=== PATIENT | male | born 1965 | race Caucasian/White ===

== ENCOUNTER 2019-10-08 00:46 | Emergency (ER) | payer SELFPAY ==
[2019-10-08] MEDS ORDERED: NA CHLORIDE 0.9% 100 ML IV ONE (01:28)
[2019-10-08] MEDS ORDERED: KETOROLAC 30 MG/ML INJ ONE (01:28)
[2019-10-08 02:00] LABS: Absolute Lymphocytes (CBC) 0.8 K/uL (0.7-4.9); Basophils % 0.8 % (0-1.3); Lymphocytes % 12.8 % (15.3-44.8); RBC Red Blood Cell Count 3.46 M/uL (4.33-5.43)
[2019-10-08] MEDS ORDERED: ONDANSETRON 4 MG/2 ML VIAL ONE (02:07)
[2019-10-08] MEDS ORDERED: MORPHINE 4 MG/ML SYR ONE (02:07)
[2019-10-08 02:16] LABS: ALT/SGPT 24 U/L (12-78); AST/SGOT 15 U/L (15-37); Albumin 2.8 g/dL (3.4-5.0); Alkaline Phosphatase 79 U/L (45-117); BUN Blood Urea Nitrogen 10 mg/dL (7-18); Bicarbonate 24 mmol/L (21-32); Bilirubin Total 0.2 mg/dL (0.2-1.0); Glucose Level 122 mg/dL (74-106); Protein, Total 6.2 g/dL (6.4-8.2); Sodium Level 141 mmol/L (136-145)
[2019-10-08 02:17] LABS: Potassium 2.9 mmol/L (3.5-5.1)
[2019-10-08] MEDS ORDERED: METHYLPREDNISOLONE 125 MG INJ ONE (02:21)
[2019-10-08] MEDS ORDERED: POTASSIUM 25 MEQ EFFERV TAB ONE (03:14)
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
[2019-10-08 08:12] VITALS: TEMP 98.3
[2019-10-08 08:14] VITALS: BP 111/64; O2SAT 98
--- NOTE | 2019-10-08 08:52 | RAD REPORT ---
EXAM DESCRIPTION: US - Scrotum Testicles - 10/08/2019 3:00 am CLINICAL HISTORY: SWELLING Scrotal pain and swelling COMPARISON: No comparisons FINDINGS: The right testicle 4.3 x 3.1 x 2.8 cm. No intratesticular masses or evidence of testicular torsion. The left testicle 3.7 x 2.4 x 2.1 cm. No intratesticular masses or evidence of testicular torsion. Right epididymis appears slightly prominent relative to the left. Large right hydrocele. IMPRESSION: No intratesticular mass or testicular torsion. Large right hydrocele.
== END 2019-10-08 04:06 | disposition home or self-care (01) ==
LOC: ER 00:46
DX: N43.3 Hydrocele, unspecified (principal); E87.6 Hypokalemia; D63.8 Anemia in other chronic diseases classified elsewhere; Z88.6 Allergy status to analgesic agent; Z88.0 Allergy status to penicillin; Z85.038 Personal history of other malignant neoplasm of large intestine; F17.210 Nicotine dependence, cigarettes, uncomplicated
CPT/HCPCS: 36415; 76870; 80053; 85025; 96361; 96374; 96375; 99284; J2405; J2930

== ENCOUNTER → 2023-12-04 | Emergency (ER) | payer OTHER, SELFPAY ==
[~2023-12-04] MED LIST: FENTANYL CITR 100 MCG/2 ML ONE; NA CHLORIDE 0.9% 1,000 ML ONE; ONDANSETRON 4 MG/2 ML VIAL ONE; PANTOPRAZOLE 40 MG INJ ONE
--- NOTE | 2023-12-04 19:56 | RAD REPORT ---
EXAM DESCRIPTION: RAD - Chest Single View - 12/04/2023 7:51 pm CLINICAL HISTORY: abdominal pain Chest pain. COMPARISON: CHEST SINGLE VIEW dated 04/11/2013; CHEST SINGLE VIEW dated 12/09/2012 FINDINGS: Portable technique limits examination quality. The lungs are emphysematous but grossly clear. The heart is normal in size. No displaced fractures. IMPRESSION: No acute intrathoracic process suspected.
[2023-12-04 20:13] LABS: Absolute Basophils 0.1 K/uL (0-0.5); Absolute Lymphocytes (CBC) 1.7 K/uL (0.7-4.9); Basophils % 1.1 % (0-1.3); Eosinophils % 0.3 % (0-4.4); Hematocrit 29.6 % (39.6-49.0); Hemoglobin 10.4 g/dL (13.6-17.9); Lymphocytes % 13.9 % (15.3-44.8); MCV 96.3 fL (80-100); MPV 7.4 fL (7.6-11.3); Platelets 418 thou/uL (152-406); RBC Red Blood Cell Count 3.07 M/uL (4.33-5.43)
[2023-12-04 20:29] LABS: ALT/SGPT 18 U/L (16-61); Albumin 2.7 g/dL (3.4-5.0); Albumin/Globulin Ratio 0.7 (1.1-1.8); Alkaline Phosphatase 81 U/L (45-117); Anion Gap 9.2 mEq/L (5.0-15.0); BUN Blood Urea Nitrogen 51 mg/dL (7-18); Bicarbonate 28 mEq/L (21-32); Bilirubin Total 0.3 mg/dL (0.2-1.0); Globulin 4.1 g/dL (2.3-3.5); Glomerular Filtration Rate 88 ml/min (=/>90); Glucose Level 131 mg/dL (74-106); Lipase 17 U/L (13-75); NT PRO-BNP 57 pg/mL (<125); Protein, Total 6.8 g/dL (6.4-8.2); Sodium Level 136 mEq/L (136-145); Troponin High Sensitivity 18.9 pg/mL (<58.9)
[2023-12-04 20:30] LABS: AST/SGOT 25 U/L (15-37); Bilirubin Direct < 0.1 mg/dL (0-0.2); Bilirubin Indirect, Calculated ND mg/dL (0.2-0.8); Magnesium 2.1 mg/dL (1.6-2.4); Potassium 4.2 mEq/L (3.5-5.1)
--- NOTE | 2023-12-04 21:09 | RAD REPORT ---
EXAM DESCRIPTION: CTAbdomen Pelvis W Contrast - 12/04/2023 8:55 pm CLINICAL HISTORY: Abdominal pain. ABD PAIN COMPARISON: No comparisons TECHNIQUE: Biphasic CT imaging of the abdomen and pelvis was performed with 100 ml non-ionic IV cont rast. All CT scans are performed using dose optimization technique as appropriate and may include automated exposure control or mA/KV adjustment according to patient size. FINDINGS: The lung bases are clear. The liver, spleen, pancreas, adrenal glands and kidneys are within normal limits. No bowel obstruction, free air, free fluid or abscess. Mild sigmoid diverticulosis coli without diver ticulitis. The appendix is normal. No evidence of significant lymphadenopathy. Mild lumbar spondylosis. IMPRESSION: No acute intra-abdominal or pelvic finding. Prominent sigmoid diverticulosis coli without diverticulitis.
[2023-12-04 22:46] LABS: Urine Bacteria None Seen /HPF (<20); Urine Bilirubin NEGATIVE (Negative); Urine Blood Negative (Negative); Urine Clarity Clear (Clear); Urine Color Light-Yellow (Yellow); Urine Glucose NEGATIVE (Negative); Urine Mucus Slight /HPF (None Seen); Urine Protein TRACE (Negative); Urine RBC <5 /HPF (None Seen); Urine Urobilinogen Normal (Normal)
[2023-12-04 22:47] LABS: Specific Gravity > 1.030 (1.005-1.030)
[2023-12-04 22:54] LABS: Protime INR 1.16
--- NOTE | 2023-12-04 23:10 | ER ---
Nurse's Notes [facility] Name: Paul Price Age: 58 yrs Sex: Male : 1965 Arrival Date: 12/04/2023 Time: 18:28 Bed 8 Private MD: Diagnosis: GI Bleed/ Gastrointestinal hemorrhage, unspecified;Anemia, unspecified Presentation: 12/03 18:40 Chief complaint: EMS states: pt c/o n/v/d has black stool last night. Coronavirus iw screen: At this time, the client does not indicate any symptoms associated with coronavirus-19. Ebola Screen: Patient negative for fever greater than or equal to 101.5 degrees Fahrenheit, and additional compatible Ebola Virus Disease symptoms Patient denies exposure to infectious person. Patient denies travel to an Ebola-affected area in the 21 days before illness onset. No symptoms or risks identified at this time. 18:40 Method Of Arrival: EMS: [email or web address] iw 19:00 Acuity: POLO 3 tm6 19:00 Initial Sepsis Screen: Does the patient meet any 2 criteria? HR > 90 bpm. Does the tm6 patient have a suspected source of infection? No. Patient's initial sepsis screen is negative. Risk Assessment: Do you want to hurt yourself or someone else? Patient reports no desire to harm self or others. Onset of symptoms is unknown. Triage Assessment: 18:47 General: Appears in no apparent distress. uncomfortable, Behavior is calm, cooperative, ld1 appropriate for age. Pain: Complains of pain in abdomen Pain does not radiate. Pain currently is 10 out of 10 on a pain scale. Quality of pain is described as sharp, shooting, Pain began 1 day ago. Is continuous. EENT: No signs and/or symptoms were reported regarding the EENT system. Neuro: Level of Consciousness is awake, alert, obeys commands, Oriented to person, place, time, situation. Cardiovascular: Capillary refill < 3 seconds Patient's skin is warm and dry. Respiratory: Airway is patent Respiratory effort is even, unlabored. GI: Abdomen is flat, non-distended, Reports upper abdominal pain, diarrhea, nausea, vomiting. : No signs and/or symptoms were reported regarding the genitourinary system. : No signs and/or symptoms were reported regarding the genitourinary system. Historical: - Allergies: 18:47 Aspirin; ld1 18:47 Benadryl; ld1 18:47 Codeine; ld1 18:47 PENICILLINS; ld1 - PMHx: 18:47 colon cancer; ld1 - Immunization history:: Adult Immunizations up to date. - Social history:: Smoking status: Patient reports the use of cigarette tobacco products, smokes one-half pack cigarettes per day, Patient/guardian denies using alcohol. Screenin:10 [facility] ED Fall Risk Assessment (Adult) History of falling in the last 3 months, tm6 including since admission No falls in past 3 months (0 pts) Confusion or Disorientation No (0 pts) Intoxicated or Sedated No (0 pts) Impaired Gait No (0 pts) Mobility Assist Device Used No (0 pt) Altered Elimination No (0 pt) Score/Fall Risk Level 0 - 2 = Low Risk Oriented to surroundings, Maintained a safe environment. Abuse screen: Denies threats or abuse. Denies injuries from another. Nutritional screening: No deficits noted. Tuberculosis screening: No symptoms or risk factors identified. Assessment: 19:10 General: Appears distressed, Behavior is calm, cooperative. Pain: Complains of pain in tm6 abdomen Pain currently is 10 out of 10 on a pain scale. Neuro: Level of Consciousness is awake, alert, obeys commands, Oriented to person, place, time, situation. Cardiovascular: Capillary refill < 3 seconds Patient's skin is warm and dry. Rhythm is sinus tachycardia. Respiratory: Reports shortness of breath for several months when lying on back Airway is patent Respiratory effort is even, unlabored, Respiratory pattern is regular, symmetrical. GI: Bowel sounds present X 4 quads. Abdomen is tender to palpation X 4 quads. Guarding noted X 4 quads. Reports diarrhea, nausea, vomiting, black stools. : No signs and/or symptoms were reported regarding the genitourinary system. EENT: No signs and/or symptoms were reported regarding the EENT system. Derm: No signs and/or symptoms reported regarding the dermatologic system. Musculoskeletal: No signs and/or symptoms reported regarding the musculoskeletal system. 22:28 Reassessment: Patient and/or family updated on plan of care and expected duration. Pain tm6 level reassessed. Patient is alert, oriented x 3, equal unlabored respirations, skin warm/dry/pink. 23:36 Reassessment: patient leaving against medical advance. RN and PA spoke with patient and tm6 family multiple times about the importance and need of continued medical care, which would include a transfer to another hospital for a GI specialist. Patient stated he would go to another hospital but refuses to ride in an ambulance. RN and PA explained the need for continued medical care during transfer from [facility] to an accepting facility. Patient continued to refuse EMS transport. Patient and family educated on the need to go to a hospital with a GI specialist, such as [facility] or [facility] immediately. Patient left AMA. Vital Signs: 18:47 Pulse 100; Resp 18; Temp 98.2(TE); Pulse Ox 100% on R/A; Weight 74.84 kg; Height 5 ft. ld1 10 in. ; Pain 10/10; 18:50 BP 102 / 70; ld1 21:49 BP 111 / 76; Pulse 99; Resp 20; Pulse Ox 100% on R/A; kd4 22:24 BP 125 / 85; Pulse 104; Resp 19; Pulse Ox 100% on R/A; Pain 2/10; tm6 23:35 BP 101 / 77; Pulse 103; Resp 20; Temp 98.2(TE); Pulse Ox 99% on R/A; Pain 0/10; tm6 18:47 Body Mass Index 23.67 (74.84 kg, 177.8 cm) ld1 18:47 Pain Scale: Adult ld1 22:24 Pain Scale: Adult tm6 23:35 Pain Scale: Adult tm6 ED Course: 18:36 Patient arrived in ED. mr 18:41 Mahesh Moreno PA is PHCP. cp 18:41 Tom Steven MD is Attending Physician. cp 18:47 Arm band placed on right wrist. ld1 19:10 Patient has correct armband on for positive identification. Placed in gown. Bed in low tm6 position. Call light in reach. Side rails up X2. Provided Education on: plan of care. Client placed on continuous cardiac and pulse oximetry monitoring. NIBP monitoring applied. gambling monitor on. Pulse ox on. NIBP on. Door closed. Noise minimized. 19:53 XRAY Chest (1 view) In Process Unspecified. EDMS 19:53 EKG done, by ED staff, reviewed by Tom Steven MD. tm6 20:00 Initial lab(s) drawn, by me, sent to lab. First set of blood cultures drawn. km8 20:03 LFT's Sent. tm6 20:03 Ptt, Activated Sent. km8 20:03 Lipase Sent. km8 20:03 Magnesium Sent. tm6 20:03 NT PRO-BNP Sent. tm6 20:03 PT-INR Sent. tm6 20:03 Troponin HS Sent. tm6 20:15 Inserted saline lock: 22 gauge in right forearm, using aseptic technique. mb9 20:38 Troy King, RN is Primary Nurse. tm6 20:56 CT Abd/Pelvis - IV Contrast Only In Process Unspecified. EDMS 21:49 PT-INR Sent. kd4 21:49 Lab(s) recollected, by me, sent to lab. kd4 22:46 Urinalysis W/Microscopic Sent. tm6 23:40 Triage completed. tm6 23:40 No provider procedures requiring assistance completed. IV discontinued, intact, tm6 bleeding controlled, No redness/swelling at site. Pressure dressing applied. Administered Medications: 20:38 Drug: Ondansetron IVP 4 mg IVP once; over 2 minutes Route: IVP; Site: right forearm; tm6 20:39 Drug: NS 0.9% IV 1000 ml IV at 999 ml/hr Per protocol Route: IV; Rate: 999 ml/hr; Site: tm6 right forearm; 23:41 Follow up: Response: No adverse reaction; IV Status: Completed infusion; IV Intake: tm6 1000ml 20:39 Drug: Pantoprazole IVP 40 mg IVP once Route: IVP; Site: right forearm; tm6 21:14 Drug: fentaNYL (PF) IVP 50 mcg IVP once Route: IVP; Site: right forearm; tm6 23:16 Drug: NS 0.9% IV 1000 ml IV at 1 bolus Per protocol; 1000 mL bolus Route: IV; Rate: 1 km8 bolus; Site: right forearm; 23:41 Follow up: Response: No adverse reaction; IV Intake: 1000ml tm6 23:16 Drug: Pantoprazole IVP 40 mg IVP once Route: IVP; Site: right forearm; km8 Medication: 19:10 VIS not applicable for this client. tm6 Intake: 23:41 IV: 1000ml; Total: 1000ml. tm6 23:41 IV: 1000ml; Total: 2000ml. tm6 Outcome: 23:09 ER care complete, transfer ordered by MD. manzanares 23:40 AMA AMA form signed tm6 23:40 Condition: unchanged 23:40 Instructed on the need for transfer, 23:41 Patient left the ED. tm6 Signatures: Dispatcher [employer] EDNM Cary Rees, Reg Reg mr Leana Otero, RN RN iw Mahesh Moreno PA PA cp Sims, Lauren RN RN ld1 Manuel, Suzy, RN RN mb9 Emma Sen, RN RN km8 Troy King RN RN tm6 Jonny Barfield RN RN kd4
--- NOTE | 2023-12-04 23:10 | EDPHYS ---
Physician Documentation [facility] Name: Paul Price Age: 58 yrs Sex: Male : 1965 Arrival Date: 12/04/2023 Time: 18:28 Bed 8 Private MD: ED Physician Tom Steven HPI: 12/03 19:00 This 58 yrs old Male presents to ER via EMS with complaints of Abdominal Pain. cp 19:00 The patient presents with abdominal pain. cp 19:00 Onset: The symptoms/episode began/occurred last night. Associated signs and symptoms: cp Pertinent positives: nausea, vomiting, and diarrhea, black colored stools, Pertinent negatives: constipation, fever, headache, palpitations, testicular pain. The symptoms are described as constant. 19:00 Severity of pain: in the emergency department the pain is unchanged despite home cp interventions. Historical: - Allergies: 18:47 Aspirin; ld1 18:47 Benadryl; ld1 18:47 Codeine; ld1 18:47 PENICILLINS; ld1 - PMHx: 18:47 colon cancer; ld1 - Immunization history:: Adult Immunizations up to date. - Social history:: Smoking status: Patient reports the use of cigarette tobacco products, smokes one-half pack cigarettes per day, Patient/guardian denies using alcohol. ROS: 19:05 Constitutional: Negative for body aches, chills, fever, poor PO intake, cp 19:05 Eyes: Negative for injury, pain, redness, and discharge, cp 19:05 ENT: Negative for drainage from ear(s), ear pain, sore throat, difficulty swallowing, difficulty handling secretions, 19:05 Cardiovascular: Negative for chest pain, 19:05 Respiratory: Negative for cough, shortness of breath, wheezing, 19:05 Abdomen/GI: Positive for abdominal pain, nausea and vomiting, black/tarry stool, Negative for diarrhea, constipation, hematemesis, 19:05 Neuro: Negative for altered mental status, headache, syncope, near syncope, 19:05 All other systems are negative, Exam: 19:20 Constitutional: The patient appears in no acute distress, alert, awake, cp non-diaphoretic, non-toxic, well developed, well nourished, uncomfortable, 19:20 Head/Face: Normocephalic, atraumatic. cp 19:20 Eyes: Periorbital structures: appear normal, Conjunctiva: normal, no exudate, no injection, Sclera: no appreciated abnormality, Lids and lashes: appear normal, bilaterally, 19:20 ENT: External ear(s): are unremarkable, Nose: is normal, Mouth: Lips: moist, Oral mucosa: moist, Posterior pharynx: Airway: no evidence of obstruction, patent, 19:20 Chest/axilla: Inspection: normal, Palpation: is normal, no crepitus, no tenderness, 19:20 Cardiovascular: Rate: tachycardic, Rhythm: regular, Edema: is not appreciated, JVD: is not appreciated, 19:20 Respiratory: the patient does not display signs of respiratory distress, Respirations: normal, no use of accessory muscles, no retractions, labored breathing, is not present, Breath sounds: are clear throughout, no decreased breath sounds, no stridor, no wheezing, 19:20 Abdomen/GI: Inspection: abdomen appears normal, Bowel sounds: active, all quadrants, Palpation: soft, in all quadrants, severe abdominal tenderness, in the epigastric area, right upper quadrant and left upper quadrant, rebound tenderness, is not appreciated, voluntary guarding, is elicited in the epigastric area, right upper quadrant and left upper quadrant, 19:20 Back: CVA tenderness, is absent, 19:20 Skin: no rash present. 19:20 Neuro: Orientation: to person, place \T\ time. Mentation: is normal, Motor: moves all fours, strength is normal, Sensation: is normal, 19:57 ECG was reviewed by the Attending Physician. cp 22:15 Abdomen/GI: Rectal exam: Stool: black, cp Vital Signs: 18:47 Pulse 100; Resp 18; Temp 98.2(TE); Pulse Ox 100% on R/A; Weight 74.84 kg; Height 5 ft. ld1 10 in. ; Pain 10/10; 18:50 BP 102 / 70; ld1 21:49 BP 111 / 76; Pulse 99; Resp 20; Pulse Ox 100% on R/A; kd4 22:24 BP 125 / 85; Pulse 104; Resp 19; Pulse Ox 100% on R/A; Pain 2/10; tm6 23:35 BP 101 / 77; Pulse 103; Resp 20; Temp 98.2(TE); Pulse Ox 99% on R/A; Pain 0/10; tm6 18:47 Body Mass Index 23.67 (74.84 kg, 177.8 cm) ld1 18:47 Pain Scale: Adult ld1 22:24 Pain Scale: Adult tm6 23:35 Pain Scale: Adult tm6 MDM: 18:51 Patient medically screened. 20:00 Differential diagnosis: AAA, acute coronary syndrome, non-specific abd pain, cp pancreatitis, Peptic Ulcer Disease, Perf. Duodenal Ulcer, Perf. Gastric Ulcer. 23:00 Data reviewed: vital signs, nurses notes, lab test result(s), EKG, radiologic studies, cp CT scan, plain films. 23:00 I considered the following discharge prescriptions or medication management in the emergency department Medications were administered in the Emergency Department. See MAR. Care significantly affected by the following chronic conditions: Cancer. Counseling: I had a detailed discussion with the patient and/or guardian regarding the historical points, exam findings, and any diagnostic results supporting the discharge/admit diagnosis, lab results, radiology results, the need to transfer to another facility, [facility] does not immediately have the required specialist. Response to treatment: the patient's symptoms have mildly improved after treatment. 12/04 00:00 Refusal of service: The patient/guardian displays adequate decision making capability and despite a detailed discussion of alternatives, benefits, risks, and consequences refuses: transfer for GI services. patient understands risk of worsening symptoms, decompensation. 12/03 18:55 Order name: Basic Metabolic Panel; Complete Time: 20:32 12/03 20:32 Interpretation: Normal except: GLUC 131; BUN 51; GFR 88; CA 8.3. 12/03 18:55 Order name: CBC with Diff; Complete Time: 20:32 03 20:32 Interpretation: Normal except: WBC 12.40; RBC 3.07; HGB 10.4; HCT 29.6; PLT 418; MPV cp 7.4; CLEMENTE% 77.4; LYM% 13.9; NEUT A 9.6. 03 18:55 Order name: LFT's; Complete Time: 20:32 12/03 18:55 Order name: Magnesium; Complete Time: 20:32 12/03 18:55 Order name: NT PRO-BNP; Complete Time: 20:32 18:55 Order name: PT-INR; Complete Time: 22:57 cp 03/ 18:55 Order name: Troponin HS; Complete Time: 20:32 cp 03/12 18:55 Order name: Lipase; Complete Time: 20:32 cp 03/12 18:55 Order name: Ptt, Activated; Complete Time: 22:57 cp 03/12 22:31 Order name: Urinalysis W/Microscopic; Complete Time: 22:57 cp 03 22:57 Interpretation: Normal except: Urine SG > 1.030; UPROT TRACE; UESTR 25. cp 03/ 18:55 Order name: XRAY Chest (1 view); Complete Time: 20:32 cp /12 19:48 Order name: CT Abd/Pelvis - IV Contrast Only; Complete Time: 21:38 cp 03/12 21:38 Interpretation: Report reviewed. cp 12/03 18:55 Order name: EKG; Complete Time: 18:55 cp 12/03 18:55 Order name: Cardiac monitoring; Complete Time: 20:03 cp 12/03 18:55 Order name: EKG - Nurse/Tech; Complete Time: 19:53 cp 12/03 18:55 Order name: IV Saline Lock; Complete Time: 20:03 cp / 18:55 Order name: Labs collected and sent; Complete Time: 20:03 cp / 18:55 Order name: O2 Per Protocol; Complete Time: 20:03 cp 12/03 18:55 Order name: O2 Sat Monitoring; Complete Time: 20:03 cp EC12 19:57 Rate is 105 beats/min. Rhythm is regular. VT interval is normal. QRS interval is cp normal. QT interval is normal. Interpreted by me. Reviewed by me. Administered Medications: 20:38 Drug: Ondansetron IVP 4 mg IVP once; over 2 minutes Route: IVP; Site: right forearm; tm6 20:39 Drug: NS 0.9% IV 1000 ml IV at 999 ml/hr Per protocol Route: IV; Rate: 999 ml/hr; Site: tm6 right forearm; 23:41 Follow up: Response: No adverse reaction; IV Status: Completed infusion; IV Intake: tm6 1000ml 20:39 Drug: Pantoprazole IVP 40 mg IVP once Route: IVP; Site: right forearm; tm6 21:14 Drug: fentaNYL (PF) IVP 50 mcg IVP once Route: IVP; Site: right forearm; tm6 23:16 Drug: NS 0.9% IV 1000 ml IV at 1 bolus Per protocol; 1000 mL bolus Route: IV; Rate: 1 km8 bolus; Site: right forearm; 23:41 Follow up: Response: No adverse reaction; IV Intake: 1000ml 6 23:16 Drug: Pantoprazole IVP 40 mg IVP once Route: IVP; Site: right forearm; km8 Disposition: 12/04 10:15 Co-signature as Attending Physician, Tom Steven MD I reviewed the patient's care rt provided by the Advanced Practice Provider and agree with the diagnosis and treatment plan. Disposition Summary: 12/04/23 23:09 Transfer Ordered Notes: Transfer Location: Other Acute Care Facility cp Reason: Higher level of care cp Condition: Stable cp Problem: new cp Symptoms: have improved cp Accepting Physician: Doctor(12/04/23 23:41) tm6 Diagnosis - GI Bleed/ Gastrointestinal hemorrhage, unspecified cp - Anemia, unspecified cp Forms: - Medication Reconciliation Form cp - SBAR form cp Signatures: Dispatcher [employer] EDMS Mahesh Moreno PA PA cp Mariana Senior RN RN ld1 Tom Steven MD MD rt Emma Sen RN RN km8 Troy King RN RN tm6 Corrections: (The following items were deleted from the chart) 12/03 23:41 23:09 Doctor cp tm6 12/04 00:29 12/03 19:00 The patient presents with abdominal pain cp cp
[2023-12-05 00:25] VITALS: BP 101/77; TEMP 98.2; O2SAT 99
== END ==
LOC: ER 18:28
DX: D64.9 Anemia, unspecified (principal); Z85.038 Personal history of other malignant neoplasm of large intestine; F17.210 Nicotine dependence, cigarettes, uncomplicated; Z88.0 Allergy status to penicillin; Z88.5 Allergy status to narcotic agent; Z88.6 Allergy status to analgesic agent
CPT/HCPCS: 85025; 81001; 80048; 36415; 83735; 85610; 80076; 85730; 84484; 83690; 83880; 74177; 71045; Q9967; C9113 ×2; J3010; J2405; J7030 ×2

== ENCOUNTER 2024-12-21 19:22 | Emergency (ER) | payer OTHER ==
[2024-12-21] MEDS ORDERED: ONDANSETRON 4 MG/2 ML VIAL ONE (19:30)
[2024-12-21] MEDS ORDERED: droPERidol 5 MG/2 ML VIAL ONE (19:31)
[2024-12-21] MEDS ORDERED: LORazepam 2 MG/ML VIAL ONE (19:31)
[2024-12-21] MEDS ORDERED: KETOROLAC 30 MG/ML INJ ONE (19:31)
[2024-12-21] MEDS ORDERED: MORPHINE 4 MG/ML SYR ONE (19:32)
[2024-12-21 20:04] LABS: Albumin/Globulin Ratio 0.8 (1.1-1.8); Anion Gap 6.4 mEq/L (5.0-15.0); Bilirubin Total 0.4 mg/dL (0.2-1.0); Globulin 3.7 g/dL (2.3-3.5); Potassium 3.4 mEq/L (3.5-5.1); Protein, Total 6.7 g/dL (6.4-8.2)
[2024-12-21 20:13] LABS: Absolute Eosinophils 0.1 K/uL (0-0.5); Absolute Lymphocytes (CBC) 0.7 K/uL (0.7-4.9); Absolute Monocytes 0.7 K/uL (0.1-1.3); Absolute Neutrophil 6.9 K/uL (1.8-8.0); Basophils % 0.6 % (0-1.3); Eosinophils % 0.9 % (0-4.4); Hematocrit 37.3 % (39.6-49.0); Hemoglobin 12.9 g/dL (13.6-17.9); Lymphocytes % 8.1 % (15.3-44.8); MCH 34.7 pg (27.0-35.0); MCHC 34.6 g/dL (32.0-36.0); MCV 100.1 fL (80-100); MPV 7.6 fL (7.6-11.3); Monocytes % 8.3 % (3.3-12.3); Neutrophils % 82.1 % (41.7-73.7); Nucleated Red Blood Cells % 0.1 % (0-0); Platelets 257 thou/uL (152-406); RBC Red Blood Cell Count 3.72 M/uL (4.33-5.43); Red Cell Distribution Width 13.5 % (12.1-15.2)
--- NOTE | 2024-12-21 20:35 | RAD REPORT ---
EXAMINATION: Head C Spine Mpr Wo Con CLINICAL INDICATION: Male, 59 years old. fall, head and neck injury TECHNIQUE: Axial CT images from the skull base to the vertex without intravenous contrast. Axial CT i mages through the cervical spine were obtained without intravenous contrast. Sagittal and coronal reformatted images were created from the data set. Coronal and sagittal reformatted images were creat ed from the data set. One or more of the following dose reduction techniques were used: Automated exposure control, adjustment of the mA and/or kV according to patient size, and/or iterative reconstr uction. Unless otherwise specified, incidental findings do not require dedicated imaging follow-up. [id number]. COMPARISON: No prior exam. FINDINGS: Head: INTRACRANIAL: No acute intracranial hemorrhage. No hydrocephalus. No mass effect or midline shift. No significant white matter disease. VASCULATURE: No visualized abnormalities in the arteries or dural venous sinuses. SCALP/SKULL: No calvarial fracture identified. No acute soft tissue abnormality. SINUSES: Chronic mucoperiosteal thickening. No significant mastoid fluid. Cervical spine: ALIGNMENT: 4 mm anterolisthesis of C4 on C5 is likely related to underlying degenerative changes. BONE: Vertebral body heights are maintained. No aggressive osseous lesions. DEGENERATIVE: Multilevel cervical spondylosis with evidence of bilateral neural foraminal narrowing. No high grade central spinal stenosis. Neural foraminal narrowing is most pronounced at the C4-5 and C5-6 levels bilaterally. SOFT TISSUE: No significant abnormalities in the soft tissue of the neck. The visualized lung apices are clear. IMPRESSION: No acute intracranial abnormality. No acute fracture or traumatic malalignment of the cervical spine.
--- NOTE | 2024-12-21 20:47 | RAD REPORT ---
EXAM: Chest Abdomen Pelvis W Cont CLINICAL INDICATION: Male, 59 years acute pelvic injury , traumatic fall TECHNIQUE: CT chest, abdomen and pelvis was performed, with IV contrast, as per department protocol. Axial, sagittal and coronal reconstructions were obtained. One or more of the following dose reduction techniques were used: Automated exposure control, adjustment of the mA and/or kV according to the patient size, and/or iterative reconstruction. Unless otherwise specified, incidental findings do not require dedicated imaging follow-up. [id number]. COMPARISON: No prior exam. FINDINGS: ---THORAX--- LOWER NECK AND CHEST WALL: Visualized thyroid gland and soft tissues are normal. LUNGS AND AIRWAYS: Probable atelectasis. Interlobular septal thickening..Motion artifact limits evalu ation for pulmonary nodule detection. PLEURA: No pleural effusion. No pneumothorax. MEDIASTINUM AND LYMPH NODES: No mediastinal mass or fluid collection. Normal size mediastinal, hilar, and axillary lymph nodes. Diffuse esophageal wall thickening. THORACIC AORTA: No thoracic aortic aneurysm. PULMONARY ARTERIES: Caliber is within normal limits. HEART: Normal heart size. No coronary calcifications.No significant pericardial effusion. ---ABDOMEN/PELVIS--- UPPER GI: No significant abnormality. LIVER: Hepatic steatosis, but otherwise unremarkable. GALLBLADDER/BILE DUCTS: No biliary ductal dilatation.? PANCREAS: Atrophy, but otherwise unremarkable. SPLEEN: Unremarkable. ADRENALS: No adrenal masses. KIDNEYS AND URETERS: No hydronephrosis.12 mm low-density lesion upper pole left kidney is not well as sessed due to streak artifact from the patient's arm.No renal calculi.No ureteral calculi. ABDOMINAL AORTA AND OTHER VESSELS: Infrarenal abdominal aortic aneurysm measuring 2.9 cm. For managem ent of fusiform aneurysmal abdominal aortas: Recommend follow-up every 5 years for aortas meeting the criteria for AAA (>1.5 x proximal normal segment; no f/u if < 1.5 x proximal normal segment; no f /u for aortas < 2.6 cm).Note: For AAA enlargement of > 0.5 cm in 6 months or > 1 cm in 1 year, recommend vascular consultation.References: J Am Michael Radiol 2013; 10(10):789-794; J Vasc Surg. 2018; 67:2-77 PERITONEUM: No abnormal free fluid. No free air. LYMPH NODES: No pathologic lymphadenopathy. ABDOMINAL WALL: Unremarkable SMALL BOWEL/COLON: Small bowel has normal course and caliber. No colonic wall thickening or pericolon ic inflammatory changes. Mild diverticulosis without diverticulitis. Moderate formed stool burden. URINARY BLADDER: Underdistended but grossly unremarkable. REPRODUCTIVE ORGANS: Large right hydrocele. ---COMBINED--- MUSCULOSKELETAL: Acute left third, fourth, fifth rib fractures. Other rib fractures may be present bu t limited by motion. Nondisplaced right subcapital femoral neck fracture. Evaluation of the sternum is limited due to motion. No definite fracture. ADDITIONAL FINDINGS: None. IMPRESSION: Nondisplaced right subcapital femoral neck fracture. Several left rib fractures identified which are nondisplaced. There is significant motion artifact which obscures many of the ribs and sternum and makes excluding fractures at these locations difficult. Possible mild pulmonary edema. Infrarenal abdominal aortic aneurysm measuring 2.9 cm. Follow up recommendations provided above. Indeterminate left upper pole renal lesion which may be a cyst but is not well evaluated due to strea k artifact from the patient's arm. Recommend nonemergent renal ultrasound.
--- NOTE | 2024-12-21 21:04 | RAD REPORT ---
EXAMINATION: Femur Right W Con CLINICAL INDICATION: Male, 59 years old.FALL TECHNIQUE: CT above extremity was performed without contrast. Reformats were performed. One or more o f the following dose reduction techniques were used: Automated exposure control, adjustment of the mA and/or kV according to patient size, and/or iterative reconstruction. Unless otherwise specified, incidental findings do not require dedicated imaging follow-up. [id number]. COMPARISON: No prior exam. FINDINGS: Nondisplaced right subcapital femoral neck fracture. No dislocation. No other fractures identified. M ild tricompartmental degenerative changes are present at the knee. Knee effusion present including fluid likely in the medial collateral ligament bursa.. IMPRESSION: Nondisplaced right subcapital femoral neck fracture.
--- NOTE | 2024-12-21 22:01 | EDPHYS ---
Physician Documentation [facility] Name: Paul Price Age: 59 yrs Sex: Male : 1965 Arrival Date: 12/21/2024 Time: 19:22 Bed 2 Private MD: ED Physician Mariano Preston HPI: 12/21 19:24 This 59 yrs old Male presents to ER via Unassigned with complaints of Fall sp4 Injury. 12/22 21:35 59-year-old male presents with complaint of acute fall, patient fell off a ladder sp4 causing injury to the right hip and thigh. Reports moderate to severe hip and thigh pain, patient arrived with EMS.. Historical: - Allergies: 12/21 19:53 Aspirin; dd2 19:53 Benadryl; dd2 19:53 Codeine; dd2 19:53 PENICILLINS; dd2 - PMHx: 19:53 STOMACH ULCER; Hypertensive disorder; dd2 - PSHx: 19:53 None; dd2 - Immunization history:: Adult Immunizations unknown. - Infectious Disease History:: Denies. - Social history:: Smoking status: Patient reports the use of cigarette tobacco products, smokes one pack cigarettes per day. - Family history:: not pertinent. ROS: 12/22 21:35 Constitutional: Negative for fever, chills, and weight loss, positive for right hip and sp4 thigh pain, positive for left-sided chest wall injury All other systems are negative, Exam: 21:35 Constitutional: This is a well developed, well nourished patient who is awake, alert, sp4 moderate distress secondary to pain Head/Face: Normocephalic, atraumatic. Eyes: Pupils equal round and reactive to light, extra-ocular motions intact. Lids and lashes normal. Conjunctiva and sclera are not injected. Cornea within normal limits. Periorbital areas with no swelling, redness, or edema. ENT: Nares patent. No nasal discharge, no septal abnormalities noted. Tympanic membranes are normal and external auditory canals are clear. Oropharynx with no redness, swelling, or masses, exudates, or evidence of obstruction, uvula midline. Mucous membranes moist. Neck: Trachea midline, no thyromegaly or masses palpated, and no cervical lymphadenopathy. Supple, full range of motion without nuchal rigidity, or vertebral point tenderness. Chest/axilla: Normal chest wall appearance and motion. Nontender with no deformity. No lesions are appreciated. Cardiovascular: Regular rate and rhythm with a normal S1 and S2. No gallops, murmurs, or rubs. Normal PMI, no JVD. No pulse deficits. Respiratory: Lungs have equal breath sounds bilaterally, clear to auscultation and percussion. No rales, rhonchi or wheezes noted. No increased work of breathing, no retractions or nasal flaring. Abdomen/GI: Soft, with normal bowel sounds. No distension or tympany. No guarding or rebound. No evidence of tenderness throughout. Back: No spinal tenderness. No costovertebral tenderness. Skin: Warm, dry with normal turgor. Normal color with no rashes, no lesions, and no evidence of cellulitis. MS/ Extremity: Pulses equal, no cyanosis. Neurovascular intact. Full, normal range of motion. Neuro: Awake and alert, GCS 15, oriented to person, place, time, and situation. Cranial nerves II-XII grossly intact. Motor strength 5/5 in all extremities. Sensory grossly intact. Psych: Awake, alert, with orientation to person, place and time. Patient is upset and irritable Vital Signs: 12/21 19:30 BP 124 / 75; Pulse 86; Resp 17; Temp 97.9; Pulse Ox 94% on 2 lpm NC; Weight 88.45 kg; dd2 Pain 10/10; 20:00 BP 115 / 95; Pulse 91; Resp 17; Pulse Ox 91% ; me1 21:00 BP 110 / 73; Pulse 106; Resp 18; Pulse Ox 90% ; me1 22:00 BP 106 / 69; Pulse 105; Resp 15; Pulse Ox 92% ; me1 23:00 BP 100 / 71; Pulse 105; Resp 19; Pulse Ox 94% on Non-rebreather mask; FiO2 15 %; dd2 19:30 Pain Scale: Adult dd2 Bjorn Coma Score: 19:57 Eye Response: spontaneous(4). Motor Response: obeys commands(6). Verbal Response: dd2 oriented(5). Total: 15. 12/22 21:35 Eye Response: spontaneous(4). Motor Response: obeys commands(6). Verbal Response: sp4 oriented(5). Total: 15. MDM: 12/21 19:46 Medical Screening Exam initiated sp4 21:33 ED course: EXAMINATION: Femur Right W Con CLINICAL INDICATION: Male, 59 years old.FALL sp4 TECHNIQUE: CT above extremity was performed without contrast. Reformats were performed. One or more of the following dose reduction techniques were used: Automated exposure control, adjustment of the mA and/or kV according to patient size, and/or iterative reconstruction. Unless otherwise specified, incidental findings do not require dedicated imaging follow-up. [id number]. COMPARISON: No prior exam. FINDINGS: Nondisplaced right subcapital femoral neck fracture. No dislocation. No other fractures identified. Mild tricompartmental degenerative changes are present at the knee. Knee effusion present including fluid likely in the medial collateral ligament bursa.. IMPRESSION: Nondisplaced right subcapital femoral neck fracture. . ED course: CT report MUSCULOSKELETAL: Acute left third, fourth, fifth rib fractures. Other rib fractures may be present but limited by motion. Nondisplaced right subcapital femoral neck fracture. Evaluation of the sternum is limited due to motion. No definite fracture. ADDITIONAL FINDINGS: None. IMPRESSION: Nondisplaced right subcapital femoral neck fracture. Several left rib fractures identified which are nondisplaced. There is significant motion artifact which obscures many of the ribs and sternum and makes excluding fractures at these locations difficult. Possible mild pulmonary edema. Infrarenal abdominal aortic aneurysm measuring 2.9 cm. Follow up recommendations provided above. Indeterminate left upper pole renal lesion which may be a cyst but is not well evaluated due to streak artifact from the patient's arm. Recommend nonemergent renal ultrasound. . 21:35 ED course: EXAMINATION: Head C Spine Mpr Wo Con CLINICAL INDICATION: Male, 59 years sp4 old. fall, head and neck injury TECHNIQUE: Axial CT images from the skull base to the vertex without intravenous contrast. Axial CT images through the cervical spine were obtained without intravenous contrast. Sagittal and coronal reformatted images were created from the data set. Coronal and sagittal reformatted images were created from the data set. One or more of the following dose reduction techniques were used: Automated exposure control, adjustment of the mA and/or kV according to patient size, and/or iterative reconstruction. Unless otherwise specified, incidental findings do not require dedicated imaging follow-up. [id number]. COMPARISON: No prior exam. FINDINGS: Head: INTRACRANIAL: No acute intracranial hemorrhage. No hydrocephalus. No mass effect or midline shift. No significant white matter disease. VASCULATURE: No visualized abnormalities in the arteries or dural venous sinuses. SCALP/SKULL: No calvarial fracture identified. No acute soft tissue abnormality. SINUSES: Chronic mucoperiosteal thickening. No significant mastoid fluid. Cervical spine: ALIGNMENT: 4 mm anterolisthesis of C4 on C5 is likely related to underlying degenerative changes. BONE: Vertebral body heights are maintained. No aggressive osseous lesions. DEGENERATIVE: Multilevel cervical spondylosis with evidence of bilateral neural foraminal narrowing. No high grade central spinal stenosis. Neural foraminal narrowing is most pronounced at the C4-5 and C5-6 levels bilaterally. SOFT TISSUE: No significant abnormalities in the soft tissue of the neck. The visualized lung apices are clear. IMPRESSION: No acute intracranial abnormality. No acute fracture or traumatic malalignment of the cervical spine. . 21:57 ED course: MUSCULOSKELETAL: Acute left third, fourth, fifth rib fractures. Other rib sp4 fractures may be present but limited by motion. Nondisplaced right subcapital femoral neck fracture. Evaluation of the sternum is limited due to motion. No definite fracture. Nondisplaced right subcapital femoral neck fracture. Several left rib fractures identified which are nondisplaced. There is significant motion artifact which obscures many of the ribs and sternum and makes excluding fractures at these locations difficult. Possible mild pulmonary edema. Infrarenal abdominal aortic aneurysm measuring 2.9 cm. Follow up recommendations provided above. ED course: Patient arrives transfer to [facility] for assessment by trauma team.. 12/22 21:35 Differential diagnosis: hip fracture, intertrochanteric fracture, femoral neck sp4 fracture, femoral shaft fracture, bursitis, arthritis, strain. Data reviewed: vital signs, nurses notes, EMS record, old medical records, lab test result(s), radiologic studies, CT scan, plain films. Consideration of Admission/Observation Patient was admitted/placed on observation. Escalation of care including admission/observation considered. Management of patient was discussed with the following: Space Engineer: Discussed with trauma surgeon at [facility]. ED course: Positive for right femoral neck fracture and multiple rib fractures on the left side.. 12/21 19:25 Order name: CBC with Diff; Complete Time: 21:24 sp4 12/21 19:25 Order name: CMP; Complete Time: 21:24 sp4 12/21 19:25 Order name: Lipase; Complete Time: 21:24 sp4 12/21 19:25 Order name: CT Chest, Abdomen, Pelvis - W/Contrast; Complete Time: 21:24 sp4 12/21 19:26 Order name: CT Head C Spine; Complete Time: 21:24 sp4 12/21 20:11 Order name: Femur Right W Con; Complete Time: 21:24 EDMS 12/21 19:25 Order name: IV Saline Lock; Complete Time: 19:42 sp4 12/21 19:25 Order name: Labs collected and sent; Complete Time: 19:42 sp4 Administered Medications: 12/21 19:45 Drug: Ketorolac IVP 30 mg IVP once Route: IVP; Site: right hand; dd2 20:00 Follow up: Response: No adverse reaction dd2 19:45 Drug: Ativan IVP 1 mg IVP once Route: IVP; Site: right hand; dd2 20:00 Follow up: Response: No adverse reaction dd2 19:45 Drug: Droperidol IVP 1.25 mg IVP once Route: IVP; Site: right hand; dd2 20:00 Follow up: Response: No adverse reaction dd2 19:46 Drug: Ondansetron IVP 8 mg IVP once; over 2 minutes Route: IVP; Site: right hand; dd2 20:01 Follow up: Response: No adverse reaction dd2 19:46 Drug: morphine IVP or IV 8 mg IVP once over 4 mins Route: IVP; Infused Over: 4 mins; dd2 Site: right hand; 20:01 Follow up: Response: No adverse reaction dd2 Disposition: 12/22 21:41 Chart complete. sp4 Disposition Summary: 12/21/24 22:01 Transfer Ordered Notes: [facility] Reason: Higher level of care sp4 Condition: Stable sp4 Problem: new sp4 Symptoms: have improved sp4 Accepting Physician: Letty MENEZES Trauma Surgery (12/21/24 23:52) dd2 Diagnosis - Acute right femoral neck fracture without displacement, acute left third rib sp4 fracture, acute left fourth rib fracture, acute left fifth rib fracture without displacement , acute multiple rib fractures left chest wall without displacement, acute fall - Acute traumatic fall off the ladder sp4 Forms: - Medication Reconciliation Form sp4 - SBAR form sp4 Critical care time excluding procedures: 21:38 Critical care time: Bedside Care: 36 minutes, Consultation: 12 minutes, Family sp4 Intervention: 12 minutes. Total time: 60 minutes Signatures: Dispatcher [employer] EDMariano Decker MD MD sp4 FAREED CHEN RN RN dd2 Corrections: (The following items were deleted from the chart) 12/21 23:52 22:01 [facility] sp4 dd2
--- NOTE | 2024-12-21 22:01 | ER ---
Nurse's Notes [facility] Name: Paul Price Age: 59 yrs Sex: Male : 1965 Arrival Date: 12/21/2024 Time: 19:22 Bed 2 Private MD: Diagnosis: Acute right femoral neck fracture without displacement, acute left third rib fracture, acute left fourth rib fracture, acute left fifth rib fracture without displacement , acute multiple rib fractures left chest wall without displacement, acute fall ;Acute traumatic fall off the ladder Presentation: 12/21 19:30 Chief complaint: EMS states: TONED OUT FOR HIP PAIN AFTER FALL. PT REPORTS FELL FROM dd2 LADDER APPROX 6-10 FEET, LANDING ON HIS RT SIDE. PT DENIES LOC. REPORTS HE GOT UP AND DROVE HOME AND 6 HOURS AFTERWARDS WAS UNABLE TO MOVE OR STAND ON HIS RT LEG. Coronavirus screen: At this time, the client does not indicate any symptoms associated with coronavirus-19. Ebola Screen: No symptoms or risks identified at this time. Initial Sepsis Screen: Does the patient meet any 2 criteria? No. Patient's initial sepsis screen is negative. Does the patient have a suspected source of infection? No. Patient's initial sepsis screen is negative. Risk Assessment: Do you want to hurt yourself or someone else? Patient reports no desire to harm self or others. Onset of symptoms was December 21, 2024. Care prior to arrival: PELVIC BINDER IN PLACE Cervical collar in place. PELVIC BINDER IN PLACE Medication(s) given: Normal saline infusion, 500 mL, zofran 4 mg, FENTYNAL TOTAL 150MCG IN 3 DOSES IV initiated. 20 GA, in the right hand. Mechanism of Injury: Fall from ladder approximately 10 feet. 19:30 Method Of Arrival: EMS: [facility] dd2 19:30 Acuity: POLO 3 dd2 Triage Assessment: 19:53 General: Appears in no apparent distress. uncomfortable, Behavior is cooperative, dd2 appropriate for age, anxious. Pain: Complains of pain in lateral aspect of right thigh Pain does not radiate. Pain currently is 10 out of 10 on a pain scale. EENT: No deficits noted. No signs and/or symptoms were reported regarding the EENT system. Neuro: Felipe Agitation-Sedation Scale (RASS): +1 Restless Level of Consciousness is awake, alert, obeys commands, Oriented to person, place, time, situation, Appropriate for age. Cardiovascular: Denies chest pain, Patient's skin is warm and dry. Respiratory: Airway is patent Respiratory effort is even, unlabored, Respiratory pattern is regular, symmetrical, Denies shortness of breath. GI: Abdomen is flat, non-distended, Bowel sounds present X 4 quads. Abd is soft and non tender X 4 quads. Patient currently denies abdominal pain, nausea. : No deficits noted. No signs and/or symptoms were reported regarding the genitourinary system. Derm: No deficits noted. No signs and/or symptoms reported regarding the dermatologic system. Musculoskeletal: Range of motion: limited in right hip and right knee Tenderness present in lateral aspect of right thigh and right quadriceps Reports pain in right leg Pain is 10 out of 10 on a pain scale. Injury Description: Deformity sustained to right quadriceps. Historical: - Allergies: 19:53 Aspirin; dd2 19:53 Benadryl; dd2 19:53 Codeine; dd2 19:53 PENICILLINS; dd2 - PMHx: 19:53 STOMACH ULCER; Hypertensive disorder; dd2 - PSHx: 19:53 None; dd2 - Immunization history:: Adult Immunizations unknown. - Infectious Disease History:: Denies. - Social history:: Smoking status: Patient reports the use of cigarette tobacco products, smokes one pack cigarettes per day. - Family history:: not pertinent. Screenin:57 [facility] ED Fall Risk Assessment (Adult) History of falling in the last 3 months, dd2 including since admission Yes- single mechanical fall (1 pt) Confusion or Disorientation No (0 pts) Intoxicated or Sedated No (0 pts) Impaired Gait No (0 pts) Mobility Assist Device Used No (0 pt) Altered Elimination No (0 pt) Score/Fall Risk Level 0 - 2 = Low Risk Oriented to surroundings, Maintained a safe environment, Educated pt \T\ family on fall prevention, incl call for assistance when getting out of bed, Assessed \T\ reinforced patient's understanding of fall precautions, Hourly rounding (assess needs \T\ fall precautionary measures) done. Abuse screen: Denies threats or abuse. Denies injuries from another. Nutritional screening: No deficits noted. Tuberculosis screening: No symptoms or risk factors identified. Assessment: 19:57 Reassessment: SEE TRIAGE ASSESSMENT FOR FULL ASSESSMENT. dd2 23:04 General: Report called to GILBERT Billingsley at [facility] [place], [place]. me1 Vital Signs: 19:30 BP 124 / 75; Pulse 86; Resp 17; Temp 97.9; Pulse Ox 94% on 2 lpm NC; Weight 88.45 kg; dd2 Pain 10/10; 20:00 BP 115 / 95; Pulse 91; Resp 17; Pulse Ox 91% ; me1 21:00 BP 110 / 73; Pulse 106; Resp 18; Pulse Ox 90% ; me1 22:00 BP 106 / 69; Pulse 105; Resp 15; Pulse Ox 92% ; me1 23:00 BP 100 / 71; Pulse 105; Resp 19; Pulse Ox 94% on Non-rebreather mask; FiO2 15 %; dd2 19:30 Pain Scale: Adult dd2 Bjorn Coma Score: 19:57 Eye Response: spontaneous(4). Motor Response: obeys commands(6). Verbal Response: dd2 oriented(5). Total: 15. 12/22 21:35 Eye Response: spontaneous(4). Motor Response: obeys commands(6). Verbal Response: sp4 oriented(5). Total: 15. ED Course: 12/21 19:24 Patient arrived in ED. dd2 19:24 Mariano Preston MD is Attending Physician. sp4 19:25 FAREED CHEN, GILBERT is Primary Nurse. dd2 19:42 CBC with Diff Sent. mm11 19:42 CMP Sent. mm11 19:42 Lipase Sent. mm11 19:53 Triage completed. dd2 19:53 Arm band placed on right wrist. dd2 19:57 No provider procedures requiring assistance completed. Initial lab(s) drawn, by me, dd2 sent to lab. Maintain EMS IV. Dressing intact. Good blood return noted. Site clean \T\ dry. Gauge \T\ site: 20G RT HAND. Flushed with 10 mL NS. Oxygen administration via nasal cannula \T\ 3L/min. 19:57 Patient has correct armband on for positive identification. Bed in low position. Call dd2 light in reach. Side rails up X2. Client placed on continuous cardiac and pulse oximetry monitoring. NIBP monitoring applied. Door closed. Noise minimized. Warm blanket given. Pillow given. Verbal reassurance given. 20:26 CT Chest, Abdomen, Pelvis - W/Contrast In Process Unspecified. EDMS 20:26 CT Head C Spine In Process Unspecified. EDMS 20:44 Femur Right W Con In Process Unspecified. EDMS 21:49 INITIATED TRANSFER WITH [facility] FOR TRAUMA \T\ [facility]. kmf 23:51 Patient transferred, IV remains in place. dd2 12/22 01:38 PT WAS ACCEPTED TO [facility]. DR. MANCINI ACCEPTED AT 2148. ACCEPTING ADMIN [facility] SEN [facility]BOS \T\2148. NUMBER FOR NURSE TO NURSE REPORT [phone] [facility] TO TRANSFER PT. Administered Medications: 12/21 19:45 Drug: Ketorolac IVP 30 mg IVP once Route: IVP; Site: right hand; dd2 20:00 Follow up: Response: No adverse reaction dd2 19:45 Drug: Ativan IVP 1 mg IVP once Route: IVP; Site: right hand; dd2 20:00 Follow up: Response: No adverse reaction dd2 19:45 Drug: Droperidol IVP 1.25 mg IVP once Route: IVP; Site: right hand; dd2 20:00 Follow up: Response: No adverse reaction dd2 19:46 Drug: Ondansetron IVP 8 mg IVP once; over 2 minutes Route: IVP; Site: right hand; dd2 20:01 Follow up: Response: No adverse reaction dd2 19:46 Drug: morphine IVP or IV 8 mg IVP once over 4 mins Route: IVP; Infused Over: 4 mins; dd2 Site: right hand; 20:01 Follow up: Response: No adverse reaction dd2 Medication: 19:57 VIS not applicable for this client. dd2 Outcome: 22:01 ER care complete, transfer ordered by . sp4 23:51 Transferred by ground EMS to [facility], Transfer form dd2 completed. 23:51 Condition: stable 23:51 Instructed on the need for transfer, Demonstrated understanding of instructions, 23:52 Patient left the ED. dd2 Signatures: Dispatcher [employer] Mariano Fisher MD MD sp4 Selena Mcconnell RN RN al1 Yanci Deluca [facility] FAREED CHEN RN RN dd2 anderson, dipak mm11
[2024-12-22 00:47] VITALS: TEMP 97.9
[2024-12-22 00:52] VITALS: BP 100/71; O2SAT 94
== END 2024-12-21 23:52 | disposition short-term general hospital (02) ==
LOC: ER 19:22
DX: S72.011A Unspecified intracapsular fracture of right femur, initial encounter for closed fracture (principal); S22.42XA Multiple fractures of ribs, left side, initial encounter for closed fracture; W11.XXXA Fall on and from ladder, initial encounter; F17.210 Nicotine dependence, cigarettes, uncomplicated
CPT/HCPCS: 85025; 36415; 83690; 80053; 70450; 72125; 71260; 73701; 74177; Q9967; J2405; J1790

== ENCOUNTER 2024-12-24 11:02 | Emergency (ER) | payer OTHER ==
--- NOTE | 2024-12-24 12:16 | RAD REPORT ---
Extremity Venous [employer] CLINICAL INDICATION: Male, 59 years old.Pain;Swelling RIGHT TECHNIQUE: Complete duplex sonography of the lower extremity veins was performed of the affected limb . The examination included compression for vein patency, color Doppler imaging and flow augmentation in response to distal compression of the distal external iliac, common femoral, femoral, popliteal, peroneal, tibial and great saphenous veins. [id number]. COMPARISON: No prior exams FINDINGS: Duplex sonography imaging demonstrates all deep veins examined to be fully compressible with spontane ous, phasic and augmented flow in the affected limb. IMPRESSION: No evidence of deep venous thrombosis in the right lower extremity.
--- NOTE | 2024-12-24 13:11 | ER ---
Nurse's Notes [facility] Name: Paul Price Age: 59 yrs Sex: Male : 1965 Arrival Date: 12/24/2024 Time: 11: Bed 17 Private MD: None, None Diagnosis: Pain in right leg Presentation: 12/24 11:09 Chief complaint: Patient states: Had R total hip 12/22, pain is severe 07/03 now. ll1 Coronavirus screen: Client denies travel out of the [place] in the last 14 days. At this time, the client does not indicate any symptoms associated with coronavirus-19. Ebola Screen: Patient denies travel to an Ebola-affected area in the 21 days before illness onset. Initial Sepsis Screen: Does the patient meet any 2 criteria? No. Patient's initial sepsis screen is negative. Does the patient have a suspected source of infection? No. Patient's initial sepsis screen is negative. Risk Assessment: Do you want to hurt yourself or someone else? Patient reports no desire to harm self or others. Onset of symptoms was December 22, 2024. 11:09 Method Of Arrival: Wheelchair ll1 11:09 Acuity: POLO 3 ll1 Triage Assessment: 11:11 General: Appears uncomfortable, Behavior is calm, cooperative, appropriate for age. ll1 Pain: Complains of pain in R hip Pain radiates to right leg. Historical: - Allergies: 11:05 Aspirin; ll1 11:05 Benadryl; ll1 11:05 Codeine; ll1 11:05 PENICILLINS; ll1 - PMHx: 11:05 colon cancer; Hypertensive disorder; Stomach ulcer; ll1 - PSHx: 11:08 R total hip replacement; ll1 - Immunization history:: Adult Immunizations up to date. - Infectious Disease History:: Denies. - Social history:: Smoking status: Patient reports the use of cigarette tobacco products, smokes .3 packs per day. Screenin:15 [facility] ED Fall Risk Assessment (Adult) History of falling in the last 3 months, kj2 including since admission No falls in past 3 months (0 pts) Confusion or Disorientation No (0 pts) Intoxicated or Sedated No (0 pts) Impaired Gait Yes (1 pt) Mobility Assist Device Used Yes (1 pt) Altered Elimination No (0 pt) Score/Fall Risk Level 0 - 2 = Low Risk Oriented to surroundings, Hourly rounding (assess needs \T\ fall precautionary measures) done. Abuse screen: Denies threats or abuse. Denies injuries from another. Nutritional screening: No deficits noted. Tuberculosis screening: No symptoms or risk factors identified. Assessment: 12:15 General: Appears in no apparent distress. Behavior is calm, cooperative. Pain: kj2 Complains of pain in right leg Pain currently is 6 out of 10 on a pain scale. Neuro: Level of Consciousness is awake, alert, obeys commands, Oriented to person, place, time, situation. Cardiovascular: Patient's skin is warm and dry. Respiratory: Airway is patent Respiratory effort is unlabored. GI: No signs and/or symptoms were reported involving the gastrointestinal system. : No signs and/or symptoms were reported regarding the genitourinary system. 13:11 Reassessment: Patient appears in no apparent distress at this time. Patient and/or kj2 family updated on plan of care and expected duration. Pain level reassessed. Patient is alert, oriented x 3, equal unlabored respirations, skin warm/dry/pink. Vital Signs: 11:09 BP 131 / 81; Pulse 90; Resp 17; Temp 98.2; Pulse Ox 96% ; Pain 10/10; ll1 13:15 BP 128 / 78; Pulse 88; Resp 20; Pulse Ox 100% on R/A; kj2 11:09 Pain Scale: Adult ll1 ED Course: 11:03 Patient arrived in ED. as 11:05 Arm band placed on. ll1 11:06 None, None is Private Physician. as 11:07 Vipin Senior DO is Attending Physician. ms3 11:11 Triage completed. ll1 11:39 Patient placed in an exam room, on a stretcher. ll1 11:45 Annie Levi, RN is Primary Nurse. kc6 12:11 Extremity Venous [employer] US In Process Unspecified. EDMS 12:15 Patient has correct armband on for positive identification. kj2 12:15 Provided Education on: call light. kj2 13:08 Sarah Bui, RN is Primary Nurse. kj2 13:17 No provider procedures requiring assistance completed. Patient did not have IV access kj2 during this emergency room visit. Administered Medications: 13:31 Drug: Acetaminophen PO 1000 mg PO once Route: PO; kj2 13:32 Follow up: Response: Medication administered at discharge. kj2 Medication: 13:11 VIS not applicable for this client. kj2 Outcome: 13:10 Discharge ordered by . ms3 13:17 Discharged to home kj2 13:17 Condition: stable 13:17 Discharge instructions given to patient, family, Instructed on discharge instructions, follow up and referral plans. Demonstrated understanding of instructions, follow-up care, 13:32 Patient left the ED. kj2 Signatures: Dispatcher [employer] EDMS Diane Mcdaniel Lynsay, RN RN ll1 Vipin Senior DO DO ms3 Annie Levi, RN RN kc6 Sarah Bui RN RN kj2
--- NOTE | 2024-12-24 13:11 | EDPHYS ---
Physician Documentation [facility] Name: Paul Price Age: 59 yrs Sex: Male : 1965 Arrival Date: 12/24/2024 Time: 11:02 Bed 17 Private MD: None, None ED Physician Vipin Senior HPI: 12/24 15:00 This 59 yrs old Male presents to ER via Wheelchair with complaints of Post Surgical ms3 Pain - Hip. 15:00 59-year-old male with past medical history of colon cancer, hypertension, stomach ms3 ulcers presents to the emergency department for right hip pain status post hip surgery at [facility] on the December 21. Patient states he left the hospital AMA after his surgery. Patient states he is experiencing right leg swelling with foot discoloration. Historical: - Allergies: 11:05 Aspirin; ll1 11:05 Benadryl; ll1 11:05 Codeine; ll1 11:05 PENICILLINS; ll1 - PMHx: 11:05 colon cancer; Hypertensive disorder; Stomach ulcer; ll1 - PSHx: 11:08 R total hip replacement; ll1 - Immunization history:: Adult Immunizations up to date. - Infectious Disease History:: Denies. - Social history:: Smoking status: Patient reports the use of cigarette tobacco products, smokes .3 packs per day. ROS: 15:00 Constitutional: Negative for fever, and chills. Cardiovascular: Negative for chest ms3 pain, and palpitations. Respiratory: Negative for shortness of breath, cough, wheezing, and pleuritic chest pain, Abdomen/GI: Negative for abdominal pain, nausea, vomiting, diarrhea, and constipation, 15:00 MS/extremity: Positive for Right leg pain, Exam: 15:00 Constitutional: This is a well developed, well nourished patient who is awake, alert, ms3 and in no acute distress. Chest/axilla: Normal chest wall appearance and motion. Nontender with no deformity. Cardiovascular: Regular rate and rhythm with a normal S1 and S2. No gallops, murmurs, or rubs. Normal PMI, no JVD. No pulse deficits. Respiratory: Lungs have equal breath sounds bilaterally, clear to auscultation and percussion. No rales, rhonchi or wheezes noted. No increased work of breathing, no retractions or nasal flaring. Abdomen/GI: Soft, non-tender, with normal bowel sounds. No distension or tympany. No guarding or rebound. No evidence of tenderness throughout. 15:00 Musculoskeletal/extremity: Extremities: noted in the right leg: tenderness, There is no evidence of ecchymosis, erythema, Right foot dorsalis pedis pulse 2+/4, 15:00 Skin: Right lateral hip incision clean dry with dressing intact. No surrounding erythema or induration. No drainage.. Vital Signs: 11:09 BP 131 / 81; Pulse 90; Resp 17; Temp 98.2; Pulse Ox 96% ; Pain 10/10; ll1 13:15 BP 128 / 78; Pulse 88; Resp 20; Pulse Ox 100% on R/A; kj2 11:09 Pain Scale: Adult ll1 MDM: 11:13 Medical Screening Exam initiated ms3 15:00 Differential diagnosis: Postop pain versus DVT. ms3 15:00 Data reviewed: vital signs, nurses notes, radiologic studies, and as a result, I will ms3 discharge patient. I considered the following discharge prescriptions or medication management in the emergency department Medications were administered in the Emergency Department. See MAR. Historians other than the Patient: Spouse/Significant Other: . Counseling: I had a detailed discussion with the patient and/or guardian regarding the historical points, exam findings, and any diagnostic results supporting the discharge/admit diagnosis, radiology results, the need for outpatient follow up, to return to the emergency department if symptoms worsen or persist or if there are any questions or concerns that arise at home. Special discussion: I discussed with the patient/guardian in detail that at this point there is no indication for admission to the hospital. It is understood, however, that if the symptoms persist or worsen the patient needs to return immediately for re-evaluation. ED course: Discussed necessity of patient to follow-up with his orthopedic surgeon and perform surgery. Patient understands agrees with plan. All questions were answered. Return precautions discussed include fevers, chills, worsening symptoms, or any other concerns. On reevaluation patient is alert and oriented x 4, no apparent distress, nontoxic-appearing, speaking full sentences. No signs of compartment syndrome present in right lower extremity. 12/24 11:42 Order name: Extremity Venous [employer] ; Complete Time: 12:42 ms3 Administered Medications: 13:31 Drug: Acetaminophen PO 1000 mg PO once Route: PO; kj2 13:32 Follow up: Response: Medication administered at discharge. kj2 Disposition Summary: 12/24/24 13:10 Discharge Ordered Notes: Location: Home ms3 Condition: Stable ms3 Diagnosis - Pain in right leg ms3 Followup: ms3 - With: Private Physician - When: 2 - 3 days - Reason: Recheck today's complaints Discharge Instructions: - Discharge Summary Sheet ms3 - Musculoskeletal Pain ms3 Forms: - Medication Reconciliation Form ms3 - Antibiotic Education ms3 - Prescription Opioid Use ms3 - Patient Portal Instructions ms3 - Leadership Thank You Letter ms3 Signatures: Dispatcher [employer] EDMS Daily Donis RN RN ll1 Vipin Senior DO DO ms3 Sarah Bui, GILBERT RN kj2 Corrections: (The following items were deleted from the chart) 15:02 15:00 Musculoskeletal/extremity: Extremities: noted in the right leg: tenderness, There ms3 is no evidence of ecchymosis, erythema, ms3
[2024-12-24] MEDS ORDERED: ACETAMINOPHEN 500 MG TAB ONE (13:23)
[2024-12-24 13:39] VITALS: TEMP 98.2
[2024-12-24 13:40] VITALS: BP 128/78; O2SAT 100
== END 2024-12-24 13:32 | disposition home or self-care (01) ==
LOC: ER 11:02
DX: M79.604 Pain in right leg (principal); Z96.641 Presence of right artificial hip joint; F17.210 Nicotine dependence, cigarettes, uncomplicated
CPT/HCPCS: 93971